=== PATIENT | male | born 1995 | race Caucasian/White ===

== ENCOUNTER 2024-01-13 11:17 | Emergency (ER) | payer OTHER ==
[~2024-01-13] VITALS: Ht 175.3 cm; Wt 100.0 kg
[2024-01-13 11:20] VITALS: O2SAT 94
[2024-01-13] MEDS: SODIUM CHLORIDE 0.9% 1,000 ML IV ONE (12:15)
[2024-01-13] MEDS ORDERED: ONDANSETRON HCL 4MG/2ML INJ IV ONE (12:15)
[2024-01-13 12:26] LABS: CHLORIDE 102 mEq/L (98-107); POTASSIUM 3.9 mEq/L (3.5-5.1); SODIUM 140 mEq/L (136-145)
[2024-01-13 12:27] LABS: CALCIUM 10.8 mg/dL (8.7-10.4); CARBON DIOXIDE 26 mEq/L (21-32)
[2024-01-13 12:31] LABS: BASOPHILS % 0.3 % (0.0-2.0); EOSINOPHILS % 0.1 % (0.0-5.0); HEMATOCRIT. 49.9 % (42.0-52.0); HEMOGLOBIN. 16.6 g/dL (14.0-18.0); LYMPHOCYTES % 14.5 % (20.0-50.0); MEAN CORPUSCULAR HEMOGLOBIN 28.6 pg (28.0-32.0); MEAN CORPUSCULAR HGB CONC 33.2 g/dL (31.0-37.0); MEAN CORPUSCULAR VOLUME 86.1 fL (80.0-94.0); MEAN PLATELET VOLUME 7.6 fl (7.4-10.4); MONOCYTES % 3.3 % (2.0-8.0); NEUTROPHILS % 81.8 % (40.0-76.0); PLATELET 454 x1000/uL (130-400); RED BLOOD CELL COUNT 5.79 mill/uL (4.7-6.1); WHITE BLOOD COUNT 12.9 x1000/uL (4.5-11.0)
[2024-01-13 12:32] LABS: CREATININE 1.3 mg/dL (0.6-1.3); GLUCOSE 140 mg/dL (70-105); UREA NITROGEN BLOOD 18 mg/dL (9-23)
[2024-01-13 12:33] LABS: ALANINE AMINOTRANSFERASE 25 IU/L (10-49); ASPARTATE AMINOTRANSFERASE 15 IU/L (<34)
[2024-01-13 12:34] LABS: ALBUMIN 5.7 g/dL (3.2-4.8); BILIRUBIN DIRECT 0.3 mg/dL (<=3.0); BILIRUBIN TOTAL 0.9 mg/dL (0.1-1.0); PROTEIN TOTAL 9.3 g/dL (6.0-8.3)
[2024-01-13] MEDS: ONDANSETRON HCL 4MG/2ML INJ IV NR (14:12)
[2024-01-13] MEDS: PROCHLORPERAZINE 10MG/2ML VIAL IM ONE (15:37)
[2024-01-13] MEDS ORDERED: ONDA-239 PO (16:58)
[2024-01-13 17:11] VITALS: BP 139/70; PULSE 88; RESP 16; TEMP 36.50292; O2SAT 94
== END 2024-01-13 18:13 | disposition home or self-care (01) ==
LOC: ER 11:33 → EDBD 11:33 → ER 18:13
DX: R11.2 Nausea with vomiting, unspecified (principal)
CPT/HCPCS: 80076; 80048; 80320; 83690; 85025; 36415; 96361; 96372; 96374; 99284; J2405; J0780; J7030; G0480

== ENCOUNTER 2024-10-23 04:33 | Emergency (ER) | payer OTHER ==
[~2024-10-23] VITALS: Ht 175.3 cm; Wt 100.0 kg
[~2024-10-23 04:33] MED LIST: ONDA-239 PO
[2024-10-23 04:44] VITALS: O2SAT 99
[2024-10-23] MEDS: ONDANSETRON HCL 4MG/2ML INJ IV STA ×2 (05:30→08:10)
[2024-10-23] MEDS: PANTOPRAZOLE SODIUM 40 MG/VIAL IV STA (05:30)
[2024-10-23] MEDS: SODIUM CHLORIDE 0.9% 1,000 ML IV ONE (05:39)
[2024-10-23 05:40] LABS: BASOPHILS % 0.2 % (0.0-2.0); HEMATOCRIT. 51.7 % (42.0-52.0); LYMPHOCYTES % 14.6 % (20.0-50.0); MEAN CORPUSCULAR HEMOGLOBIN 28.7 pg (28.0-32.0); MEAN CORPUSCULAR HGB CONC 32.9 g/dL (31.0-37.0); MEAN CORPUSCULAR VOLUME 87.2 fL (80.0-94.0); MEAN PLATELET VOLUME 7.6 fl (7.4-10.4); MONOCYTES % 3.3 % (2.0-8.0); NEUTROPHILS % 81.9 % (40.0-76.0); PLATELET 554 x1000/uL (130-400); RED BLOOD CELL COUNT 5.93 mill/uL (4.7-6.1); RED CELL DISTRIBUTION WIDTH 15.5 % (11.6-14.6); WHITE BLOOD COUNT 11.2 x1000/uL (4.5-11.0)
[2024-10-23 05:48] LABS: CHLORIDE 103 mEq/L (98-107); POTASSIUM 4.1 mEq/L (3.5-5.1); SODIUM 144 mEq/L (136-145)
[2024-10-23 05:49] LABS: CARBON DIOXIDE 24 mEq/L (21-32)
[2024-10-23 05:50] LABS: CALCIUM 10.4 mg/dL (8.7-10.4)
[2024-10-23 05:54] LABS: CREATININE 1.2 mg/dL (0.6-1.3); GLUCOSE 134 mg/dL (70-105); UREA NITROGEN BLOOD 17 mg/dL (9-23)
[2024-10-23 05:56] LABS: ALANINE AMINOTRANSFERASE 97 IU/L (10-49); ALBUMIN 5.6 g/dL (3.2-4.8); ASPARTATE AMINOTRANSFERASE 36 IU/L (<34)
[2024-10-23 05:57] LABS: BILIRUBIN DIRECT 0.3 mg/dL (<=3.0); BILIRUBIN TOTAL 0.9 mg/dL (0.1-1.0); PROTEIN TOTAL 9.3 g/dL (6.0-8.3)
[2024-10-23] MEDS ORDERED: ONDA-239 PO (07:53)
[2024-10-23 08:21] VITALS: BP 138/91; PULSE 99; RESP 11; TEMP 36.6; O2SAT 99
== END 2024-10-23 08:37 | disposition home or self-care (01) ==
LOC: ER 04:33
DX: R11.2 Nausea with vomiting, unspecified (principal); F12.90 Cannabis use, unspecified, uncomplicated; Z79.899 Other long term (current) drug therapy
CPT/HCPCS: 99284; 96374; 96361; 96375; 80076; 80048; 83690; 85025; 36415; 93005; 96376; J2405; J2470; J7030